=== PATIENT | male | born 2000 | race Caucasian/White ===

== ENCOUNTER 2021-11-09 21:16 | Emergency (ER) | payer OTHER, BC | END 2021-11-09 23:28 | disposition home or self-care (01) | LOC: CSHERS 21:16 | DX: S06.0X0A Concussion without loss of consciousness, initial encounter (principal); V86.69XA Passenger of other special all-terrain or other off-road motor vehicle injured in nontraffic accident, initial encounter; Z79.899 Other long term (current) drug therapy; J45.909 Unspecified asthma, uncomplicated | CPT/HCPCS: 70450 ==